=== PATIENT | male | born 1945 | race Hispanic/Latino ===

== ENCOUNTER 2017-03-04 13:18 | Observation (INO) | payer MEDICARE ==
[~2017-03-04] VITALS: Ht 170.2 cm; Wt 113.7 kg
[~2017-03-04 13:18] MED LIST: AMLO10TA2 PO; ARIP5TAB19 PO; FLUO40CA49 PO; LISI40TA4 PO; LORA10TA7 PO; MELO-108 PO; METO50TA18 PO; OMEP40CA37 PO; PREG75 PO; WARF-57 PO
[2017-03-04 14:00] LABS: BASOPHILS % (AUTO) 0.3 % (0.0-5.0); HEMATOCRIT 35.1 % (42-54); LYMPHOCYTES % (AUTO) 5.9 % (21.0-51.0); MEAN CORPUSCULAR HEMOGLOBIN 27.3 pg (27.0-33.0); MEAN CORPUSCULAR VOLUME 82.5 fL (79-99); MONOCYTES % (AUTO) 4.3 % (3.0-13.0); NEUTROPHILS % (AUTO) 89.5 % (40.0-77.0); PLATELET COUNT (AUTO) 264 K/uL (130-400); RED BLOOD CELL COUNT(AUTO) 4.26 MIL/uL (4.50-6.20); RED CELL DISTRIBUTION WIDTH 15.2 % (11.0-15.5); WHITE BLOOD COUNT (AUTO) 12.3 K/uL (4.8-10.8)
[2017-03-04] MEDS ORDERED: SODIUM CHLORIDE 0.9% 1000ML 1,000 ML IV ONE (14:01)
[2017-03-04] MEDS ORDERED: CEFTRIAXONE SODIUM 2 GM VIAL ONE (14:02)
[2017-03-04 14:19] LABS: CARBON DIOXIDE 24 mmol/L (21-32); CHLORIDE 99 mmol/L (101-111); CREATININE 0.9 mg/dL (0.5-1.5); GLOMERULAR FILTR. RATE CALC 88 mL/min (>60); GLUCOSE,RANDOM 175 mg/dL (70-105); POTASSIUM 3.1 mmol/L (3.5-5.1); SODIUM SERUM 135 mmol/L (136-145); UREA NITROGEN, BLOOD 16 mg/dL (7-18)
[2017-03-04 14:20] LABS: APPEARANCE,URINE Clear (CLEAR); BILIRUBIN,URINE Negative (NEGATIVE); COLOR,URINE Yellow (YELLOW); GLUCOSE, URINE (UA) 500 mg/dL (NEGATIVE); KETONES,URINE Negative (NEGATIVE); LEUKOCYTE ESTERASE ,URINE Negative (NEGATIVE); NITRATE,URINE Negative (NEGATIVE); OCCULT BLOOD,URINE Negative (NEGATIVE); PH,URINE 5.5 (5.0-8.0); PROTEIN,URINE Trace (NEGATIVE); UROBILINOGEN,URINE 0.2 mg/dL (0.2-1.0)
[2017-03-04 14:21] LABS: INR 2.7 (0.85-1.15); PARTIAL THROMBOPLASTIN TIME 41.5 SEC (26.3-35.5); PROTHROMBIN TIME 27.8 SEC (9.6-11.6)
[2017-03-04 14:34] LABS: ALANINE AMINOTRANSFERASE 29 U/L (12-78); ALBUMIN 3.2 g/dL (3.5-5.0); ASPARTATE AMINOTRANSFERASE 24 U/L (10-37); BILIRUBIN,TOTAL 0.8 mg/dL (0.2-1.0); CREATINE KINASE MB 0.7 ng/mL (0.5-3.6); CREATINE KINASE, TOTAL 247 U/L (21-232); MYOGLOBIN 109 ng/mL (10-92); TOTAL PROTEIN, SERUM 7.4 g/dL (6.0-8.3); TROPONIN I < 0.04 ng/mL (0.00-0.06)
[2017-03-04 14:44] LABS: BACTERIA,URINE Rare /HPF (None Seen); RBC,URINE 0-1 /HPF (0-1); SQUAMOUS EPITHELIAL CELL,UR Rare /LPF (0-2); WBC,URINE 0-1 /HPF (0-1)
[2017-03-04] MEDS ORDERED: POTASSIUM BICARB/CIT AC 25 MEQ TABLET.EFF ONE (15:50)
[2017-03-04] MEDS: DEXTROSE 5 %-0.225 % NACL 1,000 ML IV SCH (16:30)
[2017-03-04] MEDS ORDERED: ACETAMINOPHEN 325 MG TAB ONE (17:59)
[2017-03-04 20:00] VITALS: BP 129/74
[2017-03-04] MEDS ORDERED: ACETAMINOPHEN 325 MG TAB PO PRN (20:45)
[2017-03-04] MEDS ORDERED: DEXTROSE 5 %-0.225 % NACL 1,000 ML IV SCH (20:45)
[2017-03-04] MEDS ORDERED: DEXTROSE 50%-WATER 50 ML DISP.SYRIN IV PRN (21:45)
[2017-03-04] MEDS ORDERED: GLUCAGON 1MG KIT 1 MG ML IM PRN (21:45)
[2017-03-04] MEDS ORDERED: MORPHINE SULFATE 4 MG/1ML SYG IV PRN (21:45)
[2017-03-04] MEDS ORDERED: ONDANSETRON HCL 4 MG/2 ML VIAL IVP PRN (21:45)
[2017-03-05] VITALS (7 sets, daily range): BP systolic 111–135; BP diastolic 64–77
[2017-03-05 05:12] LABS: HEMATOCRIT 34.9 % (42-54); MEAN CORPUSCULAR HGB CONC 33.9 g/dL (32.0-36.0); MEAN CORPUSCULAR VOLUME 82.8 fL (79-99); NUCLEATED RED BLOOD CELLS 0.1 % (0.0-0.19); PLATELET COUNT (AUTO) 229 K/uL (130-400); RED BLOOD CELL COUNT(AUTO) 4.22 MIL/uL (4.50-6.20); RED CELL DISTRIBUTION WIDTH 15.3 % (11.0-15.5)
[2017-03-05 05:27] LABS: ALBUMIN 2.9 g/dL (3.5-5.0); BILIRUBIN,TOTAL 0.8 mg/dL (0.2-1.0); CREATININE 0.9 mg/dL (0.5-1.5); TOTAL PROTEIN, SERUM 6.9 g/dL (6.0-8.3)
[2017-03-05 05:42] LABS: POTASSIUM 2.8 mmol/L (3.5-5.1)
[2017-03-05] MEDS: DEXTROSE 5 %-0.225 % NACL 1,000 ML IV SCH ×2 (06:26→20:38)
[2017-03-05] MEDS ORDERED: POTASSIUM CHLORIDE 10% ELIXIR 20 MEQ/15 ML UDCUP ONE (08:30)
[2017-03-05] MEDS ORDERED: POTASSIUM CHLORIDE 20 MEQ ERTAB PO PRN (08:30)
[2017-03-05] MEDS ORDERED: WATER FOR INJECTION,STERILE 20 ML VIAL ONE (08:31)
[2017-03-05] MEDS: CEFTRIAXONE SODIUM 1 GM IVP SCH (09:25)
[2017-03-05] MEDS: POTASSIUM CHLORIDE 10% ELIXIR 20 MEQ/15 ML UDCUP PO PRN (11:13)
[2017-03-05] MEDS: POTASSIUM CHLORIDE 20MEQ/100ML 100 ML IV PRN ×2 (11:54→15:56)
[2017-03-05] MEDS: LIDOCAINE HCL-MPF 1% 2ML VIAL IVP PRN (11:55)
[2017-03-05] MEDS: INSULIN LISPRO 100 UNIT/ML 3ML SQ SCH ×2 (17:25→20:41)
[2017-03-05] MEDS: ENOXAPARIN SODIUM 30 MG/0.3 ML SQ SCH (17:25)
[2017-03-06 03:30] VITALS: BP 151/98
[2017-03-06 06:02] LABS: BASOPHILS % (AUTO) 0.4 % (0.0-5.0); EOSINOPHILS % (AUTO) 2.4 % (0.0-8.0); HEMATOCRIT 34.4 % (42-54); MEAN CORPUSCULAR VOLUME 81.9 fL (79-99); MONOCYTES % (AUTO) 10.2 % (3.0-13.0); PLATELET COUNT (AUTO) 224 K/uL (130-400); RED CELL DISTRIBUTION WIDTH 15.3 % (11.0-15.5); WHITE BLOOD COUNT (AUTO) 7.1 K/uL (4.8-10.8)
[2017-03-06 06:11] LABS: INR 1.37 (0.85-1.15); PROTHROMBIN TIME 14.3 SEC (9.6-11.6)
[2017-03-06 06:28] LABS: CREATININE 0.8 mg/dL (0.5-1.5); POTASSIUM 3.1 mmol/L (3.5-5.1)
[2017-03-06 08:00] VITALS: BP 141/87
[2017-03-06 11:00] VITALS: BP 126/70
[2017-03-06] MEDS ORDERED: WATER FOR INJECTION,STERILE 5 ML VIAL ONE (11:00)
[2017-03-06] MEDS: INSULIN LISPRO 100 UNIT/ML 3ML SQ SCH ×2 (11:05→20:23)
[2017-03-06] MEDS: CEFTRIAXONE SODIUM 1 GM IVP SCH (11:06)
[2017-03-06] MEDS: ENOXAPARIN SODIUM 30 MG/0.3 ML SQ SCH (11:07)
[2017-03-06] MEDS: DEXTROSE 5 %-0.225 % NACL 1,000 ML IV SCH ×2 (11:08→21:01)
[2017-03-06 16:00] VITALS: BP 134/64
[2017-03-06 19:35] VITALS: BP 137/77
[2017-03-06 23:20] VITALS: BP 136/79
[2017-03-07 03:30] VITALS: BP 128/69
[2017-03-07 05:43] LABS: BASOPHILS % (AUTO) 0.4 % (0.0-5.0); EOSINOPHILS % (AUTO) 2.9 % (0.0-8.0); LYMPHOCYTES % (AUTO) 25.9 % (21.0-51.0); MEAN CORPUSCULAR HEMOGLOBIN 27.7 pg (27.0-33.0); MEAN CORPUSCULAR HGB CONC 33.7 g/dL (32.0-36.0); MEAN CORPUSCULAR VOLUME 82.2 fL (79-99); MONOCYTES % (AUTO) 9.2 % (3.0-13.0); NEUTROPHILS % (AUTO) 61.6 % (40.0-77.0); PLATELET COUNT (AUTO) 209 K/uL (130-400); RED BLOOD CELL COUNT(AUTO) 4.26 MIL/uL (4.50-6.20); RED CELL DISTRIBUTION WIDTH 15.5 % (11.0-15.5); WHITE BLOOD COUNT (AUTO) 7.5 K/uL (4.8-10.8)
[2017-03-07 06:00] LABS: ALBUMIN 2.6 g/dL (3.5-5.0); BILIRUBIN,TOTAL 0.7 mg/dL (0.2-1.0); CREATININE 0.7 mg/dL (0.5-1.5); TOTAL PROTEIN, SERUM 6.4 g/dL (6.0-8.3)
[2017-03-07 07:54] VITALS: BP 131/74
[2017-03-07] MEDS ORDERED: LORATADINE 10 MG TABLET PO SCH (09:00)
[2017-03-07] MEDS ORDERED: PREGABALIN 75 MG CAPSULE PO SCH (09:00)
[2017-03-07] MEDS ORDERED: ARIPIPRAZOLE 5 MG TABLET PO SCH (09:00)
[2017-03-07] MEDS ORDERED: METOPROLOL TARTRATE 50 MG TAB PO SCH (09:00)
[2017-03-07] MEDS ORDERED: LISINOPRIL 40 MG TABLET PO SCH (09:00)
[2017-03-07] MEDS ORDERED: AMLODIPINE BESYLATE 5 MG TAB PO SCH (09:00)
[2017-03-07] MEDS ORDERED: FLUOXETINE HCL 20 MG CAPSULE PO SCH (09:00)
[2017-03-07] MEDS ORDERED: PANTOPRAZOLE SODIUM 40 MG TABLET.DR PO SCH (09:00)
[2017-03-07] MEDS ORDERED: SODIUM CHLORIDE 0.9% 10 ML VIAL ONE (09:27)
[2017-03-07] MEDS: CEFTRIAXONE SODIUM 1 GM IVP SCH (09:41)
[2017-03-07] MEDS: ENOXAPARIN SODIUM 30 MG/0.3 ML SQ SCH (09:43)
[2017-03-07] MEDS: POTASSIUM CHLORIDE 10% ELIXIR 20 MEQ/15 ML UDCUP PO PRN ×2 (09:44→12:13)
[2017-03-07] MEDS: INSULIN LISPRO 100 UNIT/ML 3ML SQ SCH (09:57)
[2017-03-07] MEDS: LIDOCAINE HCL-MPF 1% 2ML VIAL IVP PRN (10:04)
[2017-03-07] MEDS: POTASSIUM CHLORIDE 20MEQ/100ML 100 ML IV PRN (10:04)
[2017-03-07 11:46] VITALS: BP 128/79
[2017-03-07 15:48] VITALS: BP_SYST 119; BP_SYST 123; BP_DIAS 71; BP_DIAS 73
[2017-03-07] MEDS ORDERED: WARFARIN SODIUM 5 MG TAB PO SCH (17:00)
== END 2017-03-07 16:45 | disposition home or self-care (01) ==
LOC: EDH 13:18 → EDHIP 15:10 → 3AH 20:13
PROVIDERS: ADMIT Internal Medicine; ATTEND Internal Medicine
DX: A41.9 Sepsis, unspecified organism (principal); R50.9 Fever, unspecified; D72.829 Elevated white blood cell count, unspecified; E86.0 Dehydration; J96.10 Chronic respiratory failure, unspecified whether with hypoxia or hypercapnia; E11.9 Type 2 diabetes mellitus without complications; E78.5 Hyperlipidemia, unspecified; I10 Essential (primary) hypertension; I25.10 Atherosclerotic heart disease of native coronary artery without angina pectoris; Z79.4 Long term (current) use of insulin; Z79.01 Long term (current) use of anticoagulants; Z85.72 Personal history of non-Hodgkin lymphomas; Z86.73 Personal history of transient ischemic attack (TIA), and cerebral infarction without residual deficits; Z99.81 Dependence on supplemental oxygen
CPT/HCPCS: 36415 ×4; 70450; 71010; 72125; 80048; 80053 ×3; 81001; 82550; 82553; 82948 ×7; 83605 ×3; 83874; 84132; 84484; 85025 ×3; 85027; 85610 ×2; 85730; 87040; 87088; 87804 ×2; 93005; 96361 ×3; 96372 ×3; 96374; 96375; 96376 ×2; 99285; G0378 ×74; J0696 ×4; J1650 ×2; J3480 ×3; J3490 ×2; J7030; J7042 ×4

== ENCOUNTER 2017-03-16 17:13 | Inpatient (IN) | payer MEDICARE ==
[~2017-03-16] VITALS: Ht 170.2 cm; Wt 103.9 kg
[2017-03-16 17:51] LABS: BASOPHILS % (AUTO) 0.4 % (0.0-5.0); EOSINOPHILS % (AUTO) 0.4 % (0.0-8.0); HEMATOCRIT 30.9 % (42-54); LYMPHOCYTES % (AUTO) 16.3 % (21.0-51.0); MEAN CORPUSCULAR HEMOGLOBIN 26.3 pg (27.0-33.0); MEAN CORPUSCULAR HGB CONC 32.4 g/dL (32.0-36.0); MEAN CORPUSCULAR VOLUME 81.3 fL (79-99); MONOCYTES % (AUTO) 6.4 % (3.0-13.0); NEUTROPHILS % (AUTO) 76.5 % (40.0-77.0); PLATELET COUNT (AUTO) 326 K/uL (130-400); RED CELL DISTRIBUTION WIDTH 15.7 % (11.0-15.5); WHITE BLOOD COUNT (AUTO) 13.4 K/uL (4.8-10.8)
[2017-03-16 17:57] LABS: APPEARANCE,URINE Clear (CLEAR); BILIRUBIN,URINE Negative (NEGATIVE); COLOR,URINE Dark Yellow (YELLOW); GLUCOSE, URINE (UA) 250 mg/dL (NEGATIVE); KETONES,URINE Trace mg/dL (NEGATIVE); LEUKOCYTE ESTERASE ,URINE Small (NEGATIVE); NITRATE,URINE Negative (NEGATIVE); OCCULT BLOOD,URINE Negative (NEGATIVE); PROTEIN,URINE POS 1+ (NEGATIVE)
[2017-03-16 18:04] LABS: CREATININE 1.1 mg/dL (0.5-1.5); INR 3.29 (0.85-1.15); PARTIAL THROMBOPLASTIN TIME 45.3 SEC (26.3-35.5); POTASSIUM 3.4 mmol/L (3.5-5.1); PROTHROMBIN TIME 33.7 SEC (9.6-11.6)
[2017-03-16 18:06] LABS: BACTERIA,URINE Few /HPF (None Seen); RBC,URINE None Seen /HPF (0-1)
[2017-03-16 18:17] LABS: BILIRUBIN,TOTAL 1.3 mg/dL (0.2-1.0); CREATINE KINASE MB 0.7 ng/mL (0.5-3.6); TOTAL PROTEIN, SERUM 7.1 g/dL (6.0-8.3)
[2017-03-16 18:20] LABS: B-TYPE NATRIURETIC PEPTIDE 346 pg/mL (0-100)
[2017-03-16] MEDS ORDERED: NITROGLYCERIN 1GM/1 INCH PACKET TD ONE (18:21)
[2017-03-16] MEDS ORDERED: FUROSEMIDE 10 MG/ML 2ML VIAL ONE (18:30)
[2017-03-16] MEDS ORDERED: CEFTRIAXONE SODIUM 1 GM ONE (18:30)
[2017-03-16] MEDS ORDERED: AZITHROMYCIN 500MG+NS 250ML 250 ML IV ONE (18:30)
[2017-03-16] MEDS ORDERED: SODIUM CHLORIDE 0.9% 10 ML VIAL IVP PRN (19:45)
[2017-03-16] MEDS ORDERED: ACETAMINOPHEN 325 MG TAB ONE (21:00)
[2017-03-16 23:50] VITALS: BP 125/72
[2017-03-17] MEDS ORDERED: POTASSIUM CHLORIDE 10 MEQ/TAB.SA PO ONE ×4 (00:09→02:12)
[2017-03-17] MEDS ORDERED: POTASSIUM CHLORIDE 10% ELIXIR 20 MEQ/15 ML UDCUP PO PRN (01:00)
[2017-03-17] MEDS ORDERED: LACTULOSE 20 GM/30 ML UDCUP PO PRN (01:00)
[2017-03-17] MEDS ORDERED: ACETAMINOPHEN 325 MG TAB PO PRN (01:00)
[2017-03-17] MEDS ORDERED: NITROGLYCERIN 0.4 MG SL TAB SL PRN (01:00)
[2017-03-17] MEDS ORDERED: ONDANSETRON HCL 4 MG/2 ML VIAL IVP PRN (01:00)
[2017-03-17] MEDS ORDERED: ZOLPIDEM TARTRATE 5 MG TAB PO PRN (01:00)
[2017-03-17] MEDS ORDERED: GLUCAGON 1MG KIT 1 MG ML IM PRN (01:00)
[2017-03-17] MEDS ORDERED: CLONIDINE HCL 0.1 MG TABLET PO PRN (01:00)
[2017-03-17] MEDS ORDERED: LIDOCAINE HCL-MPF 1% 2ML VIAL IJ PRN (01:00)
[2017-03-17] MEDS ORDERED: DIPHENHYDRAMINE HCL 25 MG CAPSULE PO PRN (01:00)
[2017-03-17] MEDS ORDERED: DiphenhydrAMINE HCL 50 MG/ML VIAL IVP PRN (01:00)
[2017-03-17] MEDS ORDERED: POTASSIUM CHLORIDE 20MEQ/100ML 100 ML IV PRN (01:00)
[2017-03-17] MEDS ORDERED: DEXTROSE 50%-WATER 50 ML DISP.SYRIN IV PRN (01:00)
[2017-03-17] MEDS ORDERED: MAG HYDROX/AL HYDROX/SIMETH ES 30 ML SUSP UDCUP PO PRN (01:00)
[2017-03-17] MEDS ORDERED: GUAIFENESIN SUGAR-FREE 100 MG/5 ML UDCUP PO PRN (01:00)
[2017-03-17] MEDS: IPRATROPIUM/ALBUTEROL SULFATE 3 ML SOLUTION IH SCH ×6 (01:42→22:08)
[2017-03-17 02:58] LABS: CREATINE KINASE MB 1.3 ng/mL (0.5-3.6); TROPONIN I 0.19 ng/mL (0.00-0.06)
[2017-03-17 03:47] VITALS: BP 104/54
[2017-03-17] MEDS: INSULIN R PO SS1 SQ SCH ×4 (05:49→22:17)
[2017-03-17] MEDS ORDERED: ARIP10TA16 PO (06:03)
[2017-03-17 06:10] LABS: HEMATOCRIT 28.5 % (42-54); MEAN CORPUSCULAR HEMOGLOBIN 27.2 pg (27.0-33.0); MEAN CORPUSCULAR HGB CONC 33.4 g/dL (32.0-36.0); MEAN CORPUSCULAR VOLUME 81.6 fL (79-99); NUCLEATED RED BLOOD CELLS 0.1 % (0.0-0.19); PLATELET COUNT (AUTO) 280 K/uL (130-400); RED BLOOD CELL COUNT(AUTO) 3.49 MIL/uL (4.50-6.20)
[2017-03-17] MEDS: FUROSEMIDE 10 MG/ML 4ML VIAL IVP SCH ×2 (06:28→16:17)
[2017-03-17 06:38] LABS: CREATINE KINASE MB 1.6 ng/mL (0.5-3.6); POTASSIUM 3.3 mmol/L (3.5-5.1); TROPONIN I 0.17 ng/mL (0.00-0.06)
[2017-03-17 07:30] VITALS: BP 108/69
[2017-03-17 08:31] LABS: EOSINOPHILS % (MANUAL) 1 % (1-6); LYMPHOCYTES % (MANUAL) 13 % (22-44); MAN.DIFF COMMENT-IMPRESSION MANUAL DIFFERENTIAL; MONOCYTES % (MANUAL) 7 % (2-9); PLATELET MORPHOLOGY COMMENT ADEQUATE; SEGMENTED NEUTROPHILS % 79 % (40-70)
[2017-03-17] MEDS: AZITHROMYCIN 500MG+NS 250ML 250 ML IV SCH (08:41)
[2017-03-17] MEDS: CEFTRIAXONE SODIUM 1 GM IVP SCH (08:41)
[2017-03-17] MEDS: ENOXAPARIN SODIUM 100 MG/1 ML SQ SCH ×2 (08:42→22:19)
[2017-03-17] MEDS: CARVEDILOL 3.125 MG TABLET PO SCH ×2 (10:43→22:20)
[2017-03-17] MEDS: AMLODIPINE BESYLATE 5 MG TAB PO SCH (10:43)
[2017-03-17 11:37] VITALS: BP 126/69
[2017-03-17 16:16] VITALS: BP 143/80
[2017-03-17] MEDS: WARFARIN SODIUM 5 MG TAB PO SCH (16:16)
[2017-03-17 19:47] VITALS: BP 122/93
[2017-03-17] MEDS: METOPROLOL TARTRATE 50 MG TAB PO SCH (22:20)
[2017-03-17] MEDS: ACETAMINOPHEN 325 MG TAB PO PRN (22:21)
[2017-03-17 23:42] VITALS: BP 122/54
[2017-03-18] MEDS: IPRATROPIUM/ALBUTEROL SULFATE 3 ML SOLUTION IH SCH ×6 (02:15→22:12)
[2017-03-18] MEDS: ACETAMINOPHEN 325 MG TAB PO PRN (03:49)
[2017-03-18 04:15] VITALS: BP 119/73
[2017-03-18 04:15] LABS: HEMATOCRIT 31.7 % (42-54); MEAN CORPUSCULAR HGB CONC 33.3 g/dL (32.0-36.0); PLATELET COUNT (AUTO) 354 K/uL (130-400); RED BLOOD CELL COUNT(AUTO) 3.91 MIL/uL (4.50-6.20); RED CELL DISTRIBUTION WIDTH 15.8 % (11.0-15.5); WHITE BLOOD COUNT (AUTO) 10.7 K/uL (4.8-10.8)
[2017-03-18] MEDS ORDERED: PANTOPRAZOLE SODIUM 40 MG TABLET.DR PO ONE (04:53)
[2017-03-18 04:58] LABS: INR 2.51 (0.85-1.15); PARTIAL THROMBOPLASTIN TIME 56.7 SEC (26.3-35.5); PROTHROMBIN TIME 25.9 SEC (9.6-11.6)
[2017-03-18 05:06] LABS: CREATININE 1.1 mg/dL (0.5-1.5); POTASSIUM 3.4 mmol/L (3.5-5.1)
[2017-03-18] MEDS: INSULIN R PO SS1 SQ SCH ×4 (06:18→20:31)
[2017-03-18] MEDS: FUROSEMIDE 10 MG/ML 4ML VIAL IVP SCH ×2 (06:20→16:29)
[2017-03-18] MEDS: PANTOPRAZOLE SODIUM 40 MG TABLET.DR PO SCH (06:25)
[2017-03-18 07:54] VITALS: BP 118/88
[2017-03-18] MEDS: AZITHROMYCIN 500MG+NS 250ML 250 ML IV SCH (08:10)
[2017-03-18] MEDS: METOPROLOL TARTRATE 50 MG TAB PO SCH ×2 (08:10→20:13)
[2017-03-18] MEDS: MELOXICAM 7.5 MG TABLET PO SCH (08:10)
[2017-03-18] MEDS: CARVEDILOL 3.125 MG TABLET PO SCH ×2 (08:10→20:14)
[2017-03-18] MEDS: FLUOXETINE HCL 20 MG CAPSULE PO SCH (08:10)
[2017-03-18] MEDS: CEFTRIAXONE SODIUM 1 GM IVP SCH (08:10)
[2017-03-18] MEDS: PREGABALIN 75 MG CAPSULE PO SCH (08:11)
[2017-03-18] MEDS: LISINOPRIL 40 MG TABLET PO SCH (08:11)
[2017-03-18] MEDS: AMLODIPINE BESYLATE 5 MG TAB PO SCH (08:11)
[2017-03-18] MEDS: ARIPIPRAZOLE 5 MG TABLET PO SCH (08:11)
[2017-03-18] MEDS: ENOXAPARIN SODIUM 100 MG/1 ML SQ SCH (08:11)
[2017-03-18 11:16] VITALS: BP 88/51
[2017-03-18] MEDS: WARFARIN SODIUM 5 MG TAB PO SCH (16:30)
[2017-03-18] MEDS: POTASSIUM CHLORIDE 20 MEQ ERTAB PO PRN ×2 (16:30→20:33)
[2017-03-18 16:41] VITALS: BP 119/70
[2017-03-18 19:57] VITALS: BP 118/64
[2017-03-18 23:09] VITALS: BP 122/71
[2017-03-19] MEDS: IPRATROPIUM/ALBUTEROL SULFATE 3 ML SOLUTION IH SCH ×6 (02:16→22:34)
[2017-03-19 04:04] VITALS: BP 130/70
[2017-03-19 05:24] LABS: HEMATOCRIT 29.8 % (42-54); MEAN CORPUSCULAR HEMOGLOBIN 27.2 pg (27.0-33.0); MEAN CORPUSCULAR HGB CONC 33.4 g/dL (32.0-36.0); MEAN CORPUSCULAR VOLUME 81.2 fL (79-99); PLATELET COUNT (AUTO) 314 K/uL (130-400); RED BLOOD CELL COUNT(AUTO) 3.67 MIL/uL (4.50-6.20); RED CELL DISTRIBUTION WIDTH 15.9 % (11.0-15.5); WHITE BLOOD COUNT (AUTO) 10.7 K/uL (4.8-10.8)
[2017-03-19 05:38] LABS: PROTHROMBIN TIME 20.7 SEC (9.6-11.6)
[2017-03-19 05:46] LABS: CREATININE 1.1 mg/dL (0.5-1.5); POTASSIUM 3.7 mmol/L (3.5-5.1)
[2017-03-19] MEDS: PANTOPRAZOLE SODIUM 40 MG TABLET.DR PO SCH (05:51)
[2017-03-19] MEDS: POTASSIUM CHLORIDE 20 MEQ ERTAB PO PRN ×2 (05:51→20:27)
[2017-03-19] MEDS: FUROSEMIDE 10 MG/ML 4ML VIAL IVP SCH ×2 (05:52→19:04)
[2017-03-19] MEDS: INSULIN R PO SS1 SQ SCH ×4 (06:18→20:28)
[2017-03-19 07:00] VITALS: BP 113/67
[2017-03-19] MEDS: CEFTRIAXONE SODIUM 1 GM IVP SCH (07:56)
[2017-03-19] MEDS: ARIPIPRAZOLE 5 MG TABLET PO SCH (07:57)
[2017-03-19] MEDS: METOPROLOL TARTRATE 50 MG TAB PO SCH ×2 (07:57→20:26)
[2017-03-19] MEDS: FLUOXETINE HCL 20 MG CAPSULE PO SCH (07:57)
[2017-03-19] MEDS: AMLODIPINE BESYLATE 5 MG TAB PO SCH (07:57)
[2017-03-19] MEDS: LISINOPRIL 40 MG TABLET PO SCH (07:57)
[2017-03-19] MEDS: MELOXICAM 7.5 MG TABLET PO SCH (07:57)
[2017-03-19] MEDS: AZITHROMYCIN 500MG+NS 250ML 250 ML IV SCH (07:57)
[2017-03-19] MEDS: PREGABALIN 75 MG CAPSULE PO SCH (07:57)
[2017-03-19] MEDS: CARVEDILOL 3.125 MG TABLET PO SCH ×2 (07:57→20:26)
[2017-03-19 11:43] VITALS: BP 83/53
[2017-03-19 16:00] VITALS: BP 123/66
[2017-03-19] MEDS: WARFARIN SODIUM 5 MG TAB PO SCH (16:46)
[2017-03-19 19:46] VITALS: BP 126/56
[2017-03-19 23:34] VITALS: BP 129/84
[2017-03-20] MEDS: IPRATROPIUM/ALBUTEROL SULFATE 3 ML SOLUTION IH SCH ×6 (02:06→21:58)
[2017-03-20 04:00] VITALS: BP 145/77
[2017-03-20 05:39] LABS: HEMATOCRIT 33.3 % (42-54); MEAN CORPUSCULAR HEMOGLOBIN 25.7 pg (27.0-33.0); MEAN CORPUSCULAR HGB CONC 31.8 g/dL (32.0-36.0); MEAN CORPUSCULAR VOLUME 80.9 fL (79-99); PLATELET COUNT (AUTO) 355 K/uL (130-400); RED BLOOD CELL COUNT(AUTO) 4.12 MIL/uL (4.50-6.20); RED CELL DISTRIBUTION WIDTH 16.1 % (11.0-15.5); WHITE BLOOD COUNT (AUTO) 13.6 K/uL (4.8-10.8)
[2017-03-20 05:49] LABS: INR 2.45 (0.85-1.15); PARTIAL THROMBOPLASTIN TIME 42.3 SEC (26.3-35.5); PROTHROMBIN TIME 25.3 SEC (9.6-11.6)
[2017-03-20 05:51] LABS: ALBUMIN 3.1 g/dL (3.5-5.0); BILIRUBIN,TOTAL 0.8 mg/dL (0.2-1.0); CREATININE 1.2 mg/dL (0.5-1.5); POTASSIUM 3.9 mmol/L (3.5-5.1); TOTAL PROTEIN, SERUM 7.7 g/dL (6.0-8.3)
[2017-03-20] MEDS: GUAIFENESIN-DM 200/20 MG 10 ML PO PRN ×2 (06:15→20:49)
[2017-03-20] MEDS: PANTOPRAZOLE SODIUM 40 MG TABLET.DR PO SCH (06:15)
[2017-03-20] MEDS: ACETAMINOPHEN 325 MG TAB PO PRN ×2 (06:16→20:50)
[2017-03-20] MEDS: INSULIN R PO SS1 SQ SCH ×4 (06:16→20:45)
[2017-03-20 08:18] VITALS: BP 138/78
[2017-03-20] MEDS ORDERED: WATER FOR INJECTION,STERILE 5 ML VIAL ONE (09:08)
[2017-03-20] MEDS: FLUOXETINE HCL 20 MG CAPSULE PO SCH (09:16)
[2017-03-20] MEDS: ARIPIPRAZOLE 5 MG TABLET PO SCH (09:16)
[2017-03-20] MEDS: METOPROLOL TARTRATE 50 MG TAB PO SCH ×2 (09:16→20:50)
[2017-03-20] MEDS: AMLODIPINE BESYLATE 5 MG TAB PO SCH (09:16)
[2017-03-20] MEDS: CEFTRIAXONE SODIUM 1 GM IVP SCH (09:17)
[2017-03-20] MEDS: CARVEDILOL 3.125 MG TABLET PO SCH ×2 (09:17→20:50)
[2017-03-20] MEDS: PREGABALIN 75 MG CAPSULE PO SCH (09:17)
[2017-03-20] MEDS: MELOXICAM 7.5 MG TABLET PO SCH (09:17)
[2017-03-20] MEDS: LISINOPRIL 40 MG TABLET PO SCH (09:17)
[2017-03-20] MEDS: AZITHROMYCIN 500MG+NS 250ML 250 ML IV SCH (09:17)
[2017-03-20 11:30] VITALS: BP 97/52
[2017-03-20 16:32] VITALS: BP 109/58
[2017-03-20] MEDS ORDERED: WARFARIN SODIUM 2.5 MG TAB PO SCH (17:00)
[2017-03-20] MEDS: WARFARIN SODIUM 5 MG TAB PO SCH (17:00)
[2017-03-20 20:00] VITALS: BP 119/59
[2017-03-20 23:56] VITALS: BP 113/57
[2017-03-21] MEDS: GUAIFENESIN-DM 200/20 MG 10 ML PO PRN (02:50)
[2017-03-21] MEDS: IPRATROPIUM/ALBUTEROL SULFATE 3 ML SOLUTION IH SCH ×3 (03:05→09:34)
[2017-03-21 04:00] VITALS: BP 102/58
[2017-03-21] MEDS: INSULIN R PO SS1 SQ SCH (05:54)
[2017-03-21 05:58] LABS: HEMATOCRIT 28.3 % (42-54); MEAN CORPUSCULAR HEMOGLOBIN 27.7 pg (27.0-33.0); MEAN CORPUSCULAR HGB CONC 34.1 g/dL (32.0-36.0); MEAN CORPUSCULAR VOLUME 81.2 fL (79-99); PLATELET COUNT (AUTO) 307 K/uL (130-400); RED BLOOD CELL COUNT(AUTO) 3.49 MIL/uL (4.50-6.20); RED CELL DISTRIBUTION WIDTH 15.6 % (11.0-15.5)
[2017-03-21 06:06] LABS: EOSINOPHILS % (MANUAL) 3 % (1-6); LYMPHOCYTES % (MANUAL) 17 % (22-44); MONOCYTES % (MANUAL) 5 % (2-9); SEGMENTED NEUTROPHILS % 75 % (40-70)
[2017-03-21 06:07] LABS: CREATININE 1.1 mg/dL (0.5-1.5); MAN.DIFF COMMENT-IMPRESSION MANUAL DIFFERENTIAL; PLATELET MORPHOLOGY COMMENT ADEQUATE; POTASSIUM 3.7 mmol/L (3.5-5.1)
[2017-03-21] MEDS: PANTOPRAZOLE SODIUM 40 MG TABLET.DR PO SCH ×2 (06:15→08:37)
[2017-03-21 07:04] VITALS: BP 95/63
[2017-03-21] MEDS ORDERED: WATER FOR INJECTION,STERILE 5 ML VIAL ONE (08:28)
[2017-03-21 08:33] VITALS: BP 95/63
[2017-03-21] MEDS: CARVEDILOL 3.125 MG TABLET PO SCH (08:33)
[2017-03-21] MEDS: METOPROLOL TARTRATE 50 MG TAB PO SCH (08:33)
[2017-03-21] MEDS: AMLODIPINE BESYLATE 5 MG TAB PO SCH (08:33)
[2017-03-21] MEDS: LISINOPRIL 40 MG TABLET PO SCH (08:33)
[2017-03-21] MEDS: FLUOXETINE HCL 20 MG CAPSULE PO SCH (08:36)
[2017-03-21] MEDS: CEFTRIAXONE SODIUM 1 GM IVP SCH (08:36)
[2017-03-21] MEDS: AZITHROMYCIN 500MG+NS 250ML 250 ML IV SCH (08:36)
[2017-03-21] MEDS: MELOXICAM 7.5 MG TABLET PO SCH (08:36)
[2017-03-21] MEDS: ARIPIPRAZOLE 5 MG TABLET PO SCH (08:55)
[2017-03-21] MEDS: PREGABALIN 75 MG CAPSULE PO SCH (08:55)
== END 2017-03-21 10:45 | DRG 871 ==
LOC: EDH 17:13 → EDHIP 19:11 → 2DH 21:43 → 4CH 03-20 03:45
PROVIDERS: ADMIT Family Medicine; ATTEND Family Medicine
DX: A41.9 Sepsis, unspecified organism (principal); J18.9 Pneumonia, unspecified organism; J96.90 Respiratory failure, unspecified, unspecified whether with hypoxia or hypercapnia; I42.9 Cardiomyopathy, unspecified; E11.9 Type 2 diabetes mellitus without complications; E66.9 Obesity, unspecified; E78.5 Hyperlipidemia, unspecified; I10 Essential (primary) hypertension; I25.10 Atherosclerotic heart disease of native coronary artery without angina pectoris; I45.10 Unspecified right bundle-branch block; Z72.0 Tobacco use; Z74.01 Bed confinement status; Z85.72 Personal history of non-Hodgkin lymphomas; Z86.718 Personal history of other venous thrombosis and embolism; Z91.19 Patient's noncompliance with other medical treatment and regimen; Z68.35 Body mass index [BMI] 35.0-35.9, adult
CPT/HCPCS: 36415; 71045; 71046; 80048; 80053; 81001; 82550; 82553; 82948; 83605; 83874; 83880; 84484; 85025; 85027; 85610; 85730; 87040; 87804; 93005; 94640; 94664; 99291; J0456; J0696; J1650; J1815; J1940

== ENCOUNTER 2017-04-11 18:39 | Inpatient (IN) | payer MEDICARE ==
[~2017-04-11] VITALS: Ht 175.3 cm; Wt 107.7 kg
[~2017-04-11 18:39] MED LIST changes: +ARIP10TA16 PO; -ARIP5TAB19 PO; +ETOMIDATE 2 MG/ML 10 ML VIAL IVP ONE; -LORA10TA7 PO
[2017-04-11 19:07] LABS: ABG BASE EXCESS 0.6 mmol/L (-2.0-3.0); ABG HCO3 23.5 mmol/L (21.0-28.0); ABG OXYGEN SATURATION 99.8 % (95.0-99.0); ABG PCO2 33 mmHg (35-48)
[2017-04-11 19:10] LABS: BASOPHILS % (AUTO) 0.5 % (0.0-5.0); EOSINOPHILS % (AUTO) 1.3 % (0.0-8.0); LYMPHOCYTES % (AUTO) 12.5 % (21.0-51.0); MEAN CORPUSCULAR HEMOGLOBIN 25.6 pg (27.0-33.0); MEAN CORPUSCULAR HGB CONC 32.5 g/dL (32.0-36.0); MEAN CORPUSCULAR VOLUME 78.7 fL (79-99); MONOCYTES % (AUTO) 4.9 % (3.0-13.0); NEUTROPHILS % (AUTO) 80.8 % (40.0-77.0); PLATELET COUNT (AUTO) 264 K/uL (130-400); RED BLOOD CELL COUNT(AUTO) 3.82 MIL/uL (4.50-6.20); RED CELL DISTRIBUTION WIDTH 16.6 % (11.0-15.5); WHITE BLOOD COUNT (AUTO) 13.3 K/uL (4.8-10.8)
[2017-04-11 19:14] LABS: CARBON DIOXIDE 23 mmol/L (21-32); CHLORIDE 100 mmol/L (101-111); CREATININE 1.1 mg/dL (0.5-1.5); GLOMERULAR FILTR. RATE CALC 70 mL/min (>60); GLUCOSE,RANDOM 214 mg/dL (70-105); POTASSIUM 3.7 mmol/L (3.5-5.1); SODIUM SERUM 133 mmol/L (136-145); UREA NITROGEN, BLOOD 20 mg/dL (7-18)
[2017-04-11] MEDS ORDERED: SODIUM CHLORIDE 0.9% 1000ML 1,000 ML IV ONE (19:28)
[2017-04-11 19:32] LABS: INR 2.77 (0.85-1.15); PARTIAL THROMBOPLASTIN TIME 37.2 SEC (26.3-35.5); PROTHROMBIN TIME 28.5 SEC (9.6-11.6)
[2017-04-11 19:34] LABS: ALANINE AMINOTRANSFERASE 20 U/L (12-78); ALBUMIN 3.2 g/dL (3.5-5.0); ASPARTATE AMINOTRANSFERASE 17 U/L (10-37); BILIRUBIN,TOTAL 1.1 mg/dL (0.2-1.0); CREATINE KINASE MB < 0.5 ng/mL (0.5-3.6); CREATINE KINASE, TOTAL 59 U/L (21-232); MYOGLOBIN 23 ng/mL (10-92); TOTAL PROTEIN, SERUM 7.2 g/dL (6.0-8.3); TROPONIN I < 0.04 ng/mL (0.00-0.06)
[2017-04-11] MEDS ORDERED: LEVOFLOXACIN 500 MG/D5W 100 ML 100 ML ONE (20:06)
[2017-04-11 20:25] LABS: APPEARANCE,URINE Cloudy (CLEAR); BILIRUBIN,URINE Negative (NEGATIVE); COLOR,URINE Dark Yellow (YELLOW); GLUCOSE, URINE (UA) 250 mg/dL (NEGATIVE); KETONES,URINE Trace mg/dL (NEGATIVE); LEUKOCYTE ESTERASE ,URINE Trace (NEGATIVE); NITRATE,URINE Negative (NEGATIVE); OCCULT BLOOD,URINE Nonhemolyzed Trace (NEGATIVE); PH,URINE 5.5 (5.0-8.0); PROTEIN,URINE 300 (NEGATIVE)
[2017-04-11 20:46] LABS: SQUAMOUS EPITHELIAL CELL,UR 30-50 /LPF (0-2)
[2017-04-11 20:47] LABS: BACTERIA,URINE Rare /HPF (None Seen); RBC,URINE 0-1 /HPF (0-1)
[2017-04-11] MEDS ORDERED: VANCOMYCIN 1GM+NS 250ML 250 ML IV ONE (21:24)
[2017-04-11] MEDS ORDERED: LORAZEPAM 2 MG/ML 1 ML VIAL ONE (23:52)
[2017-04-11] MEDS ORDERED: PROPOFOL 1000 MG/100 ML 100 ML IV ONE (23:58)
[2017-04-11] MEDS ORDERED: FENTANYL CITRATE PF 50 MCG/1 ML 2ML VIAL ONE (23:58)
[2017-04-12] VITALS (22 sets, daily range): BP systolic 97–153; BP diastolic 50–104
[2017-04-12] MEDS ORDERED: IOPAMIDOL-370 75 ML VIAL IV ONE (00:02)
[2017-04-12] MEDS ORDERED: SODIUM CHLORIDE 0.9% 1000ML 1,000 ML IV ONE ×3 (00:08→08:23)
[2017-04-12] MEDS ORDERED: OSELTAMIVIR PHOSPHATE 75 MG CAP ONE (01:18)
[2017-04-12 01:56] LABS: ABG BASE EXCESS -3.8 mmol/L (-2.0-3.0); ABG HCO3 20.5 mmol/L (21.0-28.0); ABG OXYGEN SATURATION 89.7 % (95.0-99.0); ABG PCO2 35 mmHg (35-48)
[2017-04-12] MEDS ORDERED: SODIUM CHLORIDE 0.9% 1000ML 2,000 ML IV SCH (02:00)
[2017-04-12] MEDS ORDERED: PHARMACY COMMUNICATION MISC SCH ×2 (02:00→19:00)
[2017-04-12] MEDS: MEROPENEM 1 GM VIAL IVP SCH ×3 (02:00→17:47)
[2017-04-12] MEDS ORDERED: NOREPINEPHRINE 4MG/NS 250ML 250 ML IV SCH (02:00)
[2017-04-12] MEDS ORDERED: VANCOMYCIN PROTOCOL PER PHARMACY IV SCH ×2 (02:00→11:15)
[2017-04-12] MEDS ORDERED: NOREPINEPHRINE BITARTRATE 1 MG/1 ML ML IV ONE (03:06)
[2017-04-12] MEDS ORDERED: SODIUM CHLORIDE 0.9% 250 ML IV ONE (03:07)
[2017-04-12] MEDS ORDERED: PROPOFOL 1000 MG/100 ML 100 ML IV ONE ×2 (03:39→09:18)
[2017-04-12 05:25] LABS: ABG BASE EXCESS -3.2 mmol/L (-2.0-3.0); ABG HCO3 20.4 mmol/L (21.0-28.0); ABG OXYGEN SATURATION 92.3 % (95.0-99.0); ABG PCO2 33 mmHg (35-48)
[2017-04-12 05:57] LABS: BASOPHILS % (AUTO) 0.1 % (0.0-5.0); EOSINOPHILS % (AUTO) 0.1 % (0.0-8.0); HEMATOCRIT 26.7 % (42-54); LYMPHOCYTES % (AUTO) 7.2 % (21.0-51.0); MEAN CORPUSCULAR HEMOGLOBIN 26.4 pg (27.0-33.0); MEAN CORPUSCULAR HGB CONC 33.2 g/dL (32.0-36.0); MEAN CORPUSCULAR VOLUME 79.6 fL (79-99); MONOCYTES % (AUTO) 4.9 % (3.0-13.0); NEUTROPHILS % (AUTO) 87.7 % (40.0-77.0); PLATELET COUNT (AUTO) 234 K/uL (130-400); RED BLOOD CELL COUNT(AUTO) 3.36 MIL/uL (4.50-6.20); RED CELL DISTRIBUTION WIDTH 16.6 % (11.0-15.5); WHITE BLOOD COUNT (AUTO) 15.8 K/uL (4.8-10.8)
[2017-04-12 06:03] LABS: POTASSIUM 3.7 mmol/L (3.5-5.1)
[2017-04-12 06:09] LABS: ALBUMIN 2.6 g/dL (3.5-5.0); BILIRUBIN,TOTAL 1.5 mg/dL (0.2-1.0); TOTAL PROTEIN, SERUM 6.2 g/dL (6.0-8.3)
[2017-04-12] MEDS ORDERED: MEROPENEM 1 GM VIAL ONE (07:18)
[2017-04-12] MEDS ORDERED: DEXTROSE 50%-WATER 50 ML DISP.SYRIN IV PRN (07:30)
[2017-04-12] MEDS ORDERED: GLUCAGON 1MG KIT 1 MG ML IM PRN (07:30)
[2017-04-12] MEDS ORDERED: INSULIN R PO SS1 SQ SCH (07:30)
[2017-04-12] MEDS ORDERED: SODIUM CHLORIDE 0.9% 10 ML VIAL IVP PRN (07:30)
[2017-04-12] MEDS ORDERED: DOXYCYCLINE 100MG+NS 250ML 250 ML IV ONE (08:22)
[2017-04-12] MEDS ORDERED: HEPARIN SODIUM 5000UNIT/ML 1ML VIAL ONE (08:23)
[2017-04-12] MEDS ORDERED: OSELTAMIVIR PHOSPHATE 75 MG CAP PO SCH (09:00)
[2017-04-12 09:18] LABS: ABG BASE EXCESS -4.6 mmol/L (-2.0-3.0); ABG HCO3 20.6 mmol/L (21.0-28.0); ABG OXYGEN SATURATION 84.7 % (95.0-99.0); ABG PCO2 38 mmHg (35-48)
[2017-04-12] MEDS: DOXYCYCLINE 100MG+NS 250ML 250 ML IV SCH ×2 (10:15→23:23)
[2017-04-12] MEDS ORDERED: CARV3.1262 PO (10:34)
[2017-04-12] MEDS ORDERED: SODIUM CHLORIDE 0.9% 1000ML 1,000 ML IV SCH (11:00)
[2017-04-12] MEDS: VANCOMYCIN 1GM+NS 250ML 250 ML IV SCH ×3 (11:40→23:22)
[2017-04-12] MEDS: PROPOFOL 1000 MG/100 ML 100 ML IV PRN ×6 (11:40→23:28)
[2017-04-12] MEDS: INSULIN HUMULIN R 100 UNIT/ML 3ML SQ SCH ×3 (11:45→23:38)
[2017-04-12] MEDS: FENTANYL 2500MCG+NS 250ML 250 ML IV PRN (16:22)
[2017-04-12] MEDS: LACTATED RINGERS 1000ML 1,000 ML IV SCH (16:25)
[2017-04-12] MEDS: IPRATROPIUM/ALBUTEROL SULFATE 3 ML SOLUTION IH SCH ×2 (18:26→23:22)
[2017-04-12 18:43] LABS: ABG BASE EXCESS -2.3 mmol/L (-2.0-3.0); ABG HCO3 21.6 mmol/L (21.0-28.0); ABG OXYGEN SATURATION 86.7 % (95.0-99.0); ABG PCO2 35 mmHg (35-48)
[2017-04-12] MEDS: CISATRACURIUM BESYLATE 200 MG in SODIUM CHLORIDE 0.9% 180 ML IV SCH (19:45)
[2017-04-12] MEDS: OSELTAMIVIR PHOSPHATE 75 MG CAP NG SCH (20:07)
[2017-04-12] MEDS ORDERED: HEPARIN SODIUM 5000UNIT/ML 1ML VIAL SQ SCH (21:00)
[2017-04-12] MEDS ORDERED: FAMOTIDINE 20MG TAB 20 MG TAB PO SCH (21:00)
[2017-04-13] VITALS (25 sets, daily range): BP systolic 109–147; BP diastolic 50–69
[2017-04-13] MEDS: LACTATED RINGERS 1000ML 1,000 ML IV SCH ×3 (00:45→20:11)
[2017-04-13] MEDS: MEROPENEM 1 GM VIAL IVP SCH ×3 (01:04→18:42)
[2017-04-13] MEDS: PROPOFOL 1000 MG/100 ML 100 ML IV PRN ×4 (04:48→18:42)
[2017-04-13 05:16] LABS: BASOPHILS % (AUTO) 0.2 % (0.0-5.0); EOSINOPHILS % (AUTO) 1.7 % (0.0-8.0); HEMATOCRIT 26.8 % (42-54); LYMPHOCYTES % (AUTO) 10.3 % (21.0-51.0); MEAN CORPUSCULAR HEMOGLOBIN 25.1 pg (27.0-33.0); MEAN CORPUSCULAR HGB CONC 31.8 g/dL (32.0-36.0); MEAN CORPUSCULAR VOLUME 78.9 fL (79-99); MONOCYTES % (AUTO) 6.9 % (3.0-13.0); NEUTROPHILS % (AUTO) 80.9 % (40.0-77.0); NUCLEATED RED BLOOD CELLS 0.1 % (0.0-0.19); PLATELET COUNT (AUTO) 232 K/uL (130-400); RED CELL DISTRIBUTION WIDTH 16.9 % (11.0-15.5); WHITE BLOOD COUNT (AUTO) 13.3 K/uL (4.8-10.8)
[2017-04-13] MEDS: INSULIN HUMULIN R 100 UNIT/ML 3ML SQ SCH ×4 (05:27→23:45)
[2017-04-13 05:34] LABS: INR 3.98 (0.85-1.15); PROTHROMBIN TIME 40.7 SEC (9.6-11.6)
[2017-04-13 05:38] LABS: B-TYPE NATRIURETIC PEPTIDE 152 pg/mL (0-100)
[2017-04-13 05:40] LABS: ALBUMIN 2.3 g/dL (3.5-5.0); BILIRUBIN,TOTAL 1.5 mg/dL (0.2-1.0); CREATININE 0.8 mg/dL (0.5-1.5); POTASSIUM 3.6 mmol/L (3.5-5.1)
[2017-04-13] MEDS: FENTANYL 2500MCG+NS 250ML 250 ML IV PRN ×2 (06:02→19:48)
[2017-04-13] MEDS: IPRATROPIUM/ALBUTEROL SULFATE 3 ML SOLUTION IH SCH ×3 (06:17→18:03)
[2017-04-13] MEDS: VANCOMYCIN 1GM+NS 250ML 250 ML IV SCH ×3 (06:33→18:42)
[2017-04-13] MEDS ORDERED: PHARMACY COMMUNICATION MISC SCH (07:30)
[2017-04-13] MEDS: CISATRACURIUM BESYLATE 200 MG in SODIUM CHLORIDE 0.9% 180 ML IV SCH ×2 (07:42→23:51)
[2017-04-13] MEDS ORDERED: NOREPINEPHRINE BITARTRATE 8 MG in DEXTROSE 5%-WATER 250 ML IV SCH (07:45)
[2017-04-13 07:55] LABS: ABG BASE EXCESS -3.3 mmol/L (-2.0-3.0); ABG HCO3 22.9 mmol/L (21.0-28.0); ABG OXYGEN SATURATION 96.5 % (95.0-99.0); ABG PCO2 45 mmHg (35-48)
[2017-04-13] MEDS: OSELTAMIVIR PHOSPHATE 75 MG CAP NG SCH ×2 (09:21→20:10)
[2017-04-13] MEDS ORDERED: FAMOTIDINE/PF 20 MG/2 ML VIAL IV ONE (09:27)
[2017-04-13] MEDS: FAMOTIDINE 20MG TAB 20 MG TAB PO SCH ×2 (09:30→20:10)
[2017-04-13] MEDS: DOXYCYCLINE 100MG+NS 250ML 250 ML IV SCH ×2 (11:30→22:42)
[2017-04-13] MEDS ORDERED: IOPAMIDOL-370 100 ML VIAL IV ONE (16:30)
[2017-04-13] MEDS: ATORVASTATIN CALCIUM 10 MG TABLET NG SCH (20:09)
[2017-04-14] VITALS (22 sets, daily range): BP systolic 101–149; BP diastolic 43–77
[2017-04-14] MEDS: IPRATROPIUM/ALBUTEROL SULFATE 3 ML SOLUTION IH SCH ×4 (00:12→18:03)
[2017-04-14] MEDS: VANCOMYCIN 1GM+NS 250ML 250 ML IV SCH ×5 (00:21→23:17)
[2017-04-14] MEDS: PROPOFOL 1000 MG/100 ML 100 ML IV PRN ×4 (00:30→20:09)
[2017-04-14] MEDS: MEROPENEM 1 GM VIAL IVP SCH ×3 (01:24→18:48)
[2017-04-14] MEDS: LACTATED RINGERS 1000ML 1,000 ML IV SCH ×3 (02:38→20:05)
[2017-04-14 03:45] LABS: HEMATOCRIT 27.8 % (42-54); MEAN CORPUSCULAR HEMOGLOBIN 26.1 pg (27.0-33.0); MEAN CORPUSCULAR HGB CONC 32.5 g/dL (32.0-36.0); MEAN CORPUSCULAR VOLUME 80.2 fL (79-99); NUCLEATED RED BLOOD CELLS 0.1 % (0.0-0.19); PLATELET COUNT (AUTO) 232 K/uL (130-400); RED BLOOD CELL COUNT(AUTO) 3.46 MIL/uL (4.50-6.20); RED CELL DISTRIBUTION WIDTH 16.6 % (11.0-15.5)
[2017-04-14 03:48] LABS: INR 2.85 (0.85-1.15); PROTHROMBIN TIME 29.3 SEC (9.6-11.6)
[2017-04-14 04:03] LABS: ALBUMIN 2.2 g/dL (3.5-5.0); CREATININE 0.7 mg/dL (0.5-1.5); POTASSIUM 3.5 mmol/L (3.5-5.1); TOTAL PROTEIN, SERUM 6.1 g/dL (6.0-8.3)
[2017-04-14] MEDS: INSULIN HUMULIN R 100 UNIT/ML 3ML SQ SCH ×4 (05:21→23:45)
[2017-04-14 07:38] LABS: ABG BASE EXCESS -0.9 mmol/L (-2.0-3.0); ABG HCO3 25.1 mmol/L (21.0-28.0); ABG OXYGEN SATURATION 96.8 % (95.0-99.0); ABG PCO2 47 mmHg (35-48)
[2017-04-14] MEDS: OSELTAMIVIR PHOSPHATE 75 MG CAP NG SCH ×2 (08:41→21:00)
[2017-04-14] MEDS: FAMOTIDINE 20MG TAB 20 MG TAB PO SCH ×2 (08:41→20:57)
[2017-04-14] MEDS: ASPIRIN 81MG TAB.CHEW NG SCH (08:41)
[2017-04-14] MEDS: FENTANYL 2500MCG+NS 250ML 250 ML IV PRN (08:42)
[2017-04-14] MEDS ORDERED: IOPAMIDOL-370 100 ML VIAL IV ONE (09:23)
[2017-04-14] MEDS ORDERED: POTASSIUM CHLORIDE 20 MEQ ERTAB PO PRN (13:15)
[2017-04-14] MEDS ORDERED: LIDOCAINE HCL-MPF 1% 2ML VIAL IVP PRN (13:15)
[2017-04-14] MEDS ORDERED: FUROSEMIDE 10 MG/ML 2ML VIAL IV SCH (14:00)
[2017-04-14] MEDS: DOXYCYCLINE 100MG+NS 250ML 250 ML IV SCH ×2 (14:09→22:11)
[2017-04-14] MEDS: CISATRACURIUM BESYLATE 200 MG in SODIUM CHLORIDE 0.9% 180 ML IV SCH (16:08)
[2017-04-14] MEDS: FUROSEMIDE 10 MG/ML 2ML VIAL IV SCH (18:49)
[2017-04-14] MEDS: ATORVASTATIN CALCIUM 10 MG TABLET NG SCH (21:00)
[2017-04-15] VITALS (24 sets, daily range): BP systolic 83–160; BP diastolic 45–91
[2017-04-15] MEDS: IPRATROPIUM/ALBUTEROL SULFATE 3 ML SOLUTION IH SCH ×4 (00:08→19:36)
[2017-04-15] MEDS: MEROPENEM 1 GM VIAL IVP SCH ×3 (02:44→17:52)
[2017-04-15] MEDS: FUROSEMIDE 10 MG/ML 2ML VIAL IV SCH ×3 (02:44→17:53)
[2017-04-15 04:47] LABS: INR 2.69 (0.85-1.15); PROTHROMBIN TIME 27.7 SEC (9.6-11.6)
[2017-04-15 04:53] LABS: ALANINE AMINOTRANSFERASE 19 U/L (12-78); ASPARTATE AMINOTRANSFERASE 17 U/L (10-37); BILIRUBIN,TOTAL 0.8 mg/dL (0.2-1.0); CARBON DIOXIDE 31 mmol/L (21-32); CHLORIDE 104 mmol/L (101-111); CREATININE 0.7 mg/dL (0.5-1.5); GLOMERULAR FILTR. RATE CALC 117 mL/min (>60); GLUCOSE,RANDOM 134 mg/dL (70-105); PHOSPHORUS 2.3 mg/dL (2.5-4.9); SODIUM SERUM 140 mmol/L (136-145); TOTAL PROTEIN, SERUM 5.8 g/dL (6.0-8.3); UREA NITROGEN, BLOOD 9 mg/dL (7-18)
[2017-04-15 04:54] LABS: BASOPHILS % (AUTO) 0.4 % (0.0-5.0); EOSINOPHILS % (AUTO) 3.8 % (0.0-8.0); LYMPHOCYTES % (AUTO) 10.2 % (21.0-51.0); MEAN CORPUSCULAR HEMOGLOBIN 25.9 pg (27.0-33.0); MEAN CORPUSCULAR HGB CONC 32.9 g/dL (32.0-36.0); MEAN CORPUSCULAR VOLUME 78.8 fL (79-99); MONOCYTES % (AUTO) 6.6 % (3.0-13.0); NUCLEATED RED BLOOD CELLS 0.1 % (0.0-0.19); PLATELET COUNT (AUTO) 251 K/uL (130-400); RED CELL DISTRIBUTION WIDTH 16.6 % (11.0-15.5); WHITE BLOOD COUNT (AUTO) 8.5 K/uL (4.8-10.8)
[2017-04-15 04:55] LABS: PHENYTOIN (DILANTIN) < 0.5 mcg/mL (10.0-20.0)
[2017-04-15] MEDS: VANCOMYCIN 1GM+NS 250ML 250 ML IV SCH (05:44)
[2017-04-15] MEDS: INSULIN HUMULIN R 100 UNIT/ML 3ML SQ SCH ×4 (05:45→23:45)
[2017-04-15] MEDS: PROPOFOL 1000 MG/100 ML 100 ML IV PRN ×3 (05:48→20:56)
[2017-04-15] MEDS: OSELTAMIVIR PHOSPHATE 75 MG CAP NG SCH ×2 (08:49→20:50)
[2017-04-15] MEDS: ASPIRIN 81MG TAB.CHEW NG SCH (08:49)
[2017-04-15] MEDS: FAMOTIDINE 20MG TAB 20 MG TAB PO SCH ×2 (08:49→20:50)
[2017-04-15] MEDS: POTASSIUM CHLORIDE 20MEQ/100ML 100 ML IV PRN ×3 (08:50→21:01)
[2017-04-15] MEDS: CISATRACURIUM BESYLATE 200 MG in SODIUM CHLORIDE 0.9% 180 ML IV SCH (08:52)
[2017-04-15] MEDS: MAGNESIUM 2GM PREMIX 50ML 50 ML IV PRN ×2 (08:53→13:37)
[2017-04-15 09:17] LABS: ABG BASE EXCESS 1.9 mmol/L (-2.0-3.0); ABG HCO3 27.7 mmol/L (21.0-28.0); ABG OXYGEN SATURATION 96.5 % (95.0-99.0); ABG PCO2 49 mmHg (35-48)
[2017-04-15] MEDS: DOXYCYCLINE 100MG+NS 250ML 250 ML IV SCH ×2 (12:18→23:02)
[2017-04-15] MEDS ORDERED: COMPOUND PO MISCELLANEOUS 1 EACH MISC MISC PRN (15:00)
[2017-04-15] MEDS: CHLORHEXIDINE GLUCONATE 473 ML MOUTHWASH MM SCH ×2 (17:17→20:54)
[2017-04-15 18:16] LABS: POTASSIUM 3.3 mmol/L (3.5-5.1)
[2017-04-15] MEDS: ATORVASTATIN CALCIUM 10 MG TABLET NG SCH (20:49)
[2017-04-15] MEDS: FENTANYL 2500MCG+NS 250ML 250 ML IV PRN (20:56)
[2017-04-15] MEDS ORDERED: SODIUM CHLORIDE 0.9% 500ML 500 ML IV ONE (21:00)
[2017-04-15] MEDS ORDERED: CHLORHEXIDINE GLUCONATE 473 ML MOUTHWASH MM SCH (21:00)
[2017-04-16] VITALS (24 sets, daily range): BP systolic 88–146; BP diastolic 48–100
[2017-04-16] MEDS: POTASSIUM CHLORIDE 20MEQ/100ML 100 ML IV PRN ×4 (00:12→16:10)
[2017-04-16] MEDS: CISATRACURIUM BESYLATE 200 MG in SODIUM CHLORIDE 0.9% 180 ML IV SCH (00:12)
[2017-04-16] MEDS: IPRATROPIUM/ALBUTEROL SULFATE 3 ML SOLUTION IH SCH ×4 (00:45→17:00)
[2017-04-16] MEDS: FUROSEMIDE 10 MG/ML 2ML VIAL IV SCH ×2 (02:02→08:14)
[2017-04-16] MEDS: MEROPENEM 1 GM VIAL IVP SCH ×3 (02:03→18:28)
[2017-04-16] MEDS: PROPOFOL 1000 MG/100 ML 100 ML IV PRN ×4 (03:58→23:59)
[2017-04-16] MEDS: INSULIN HUMULIN R 100 UNIT/ML 3ML SQ SCH ×3 (06:28→17:40)
[2017-04-16] MEDS: CHLORHEXIDINE GLUCONATE 473 ML MOUTHWASH MM SCH ×3 (06:29→21:05)
[2017-04-16 06:42] LABS: BASOPHILS % (AUTO) 0.3 % (0.0-5.0); HEMATOCRIT 28.9 % (42-54); LYMPHOCYTES % (AUTO) 9.3 % (21.0-51.0); MEAN CORPUSCULAR HEMOGLOBIN 25.3 pg (27.0-33.0); MEAN CORPUSCULAR HGB CONC 32.3 g/dL (32.0-36.0); MEAN CORPUSCULAR VOLUME 78.4 fL (79-99); NEUTROPHILS % (AUTO) 82.4 % (40.0-77.0); NUCLEATED RED BLOOD CELLS 0.1 % (0.0-0.19); PLATELET COUNT (AUTO) 302 K/uL (130-400); RED BLOOD CELL COUNT(AUTO) 3.68 MIL/uL (4.50-6.20); RED CELL DISTRIBUTION WIDTH 16.2 % (11.0-15.5)
[2017-04-16 06:57] LABS: CREATININE 0.7 mg/dL (0.5-1.5); MAGNESIUM 1.8 mg/dL (1.80-2.40); POTASSIUM 3.4 mmol/L (3.5-5.1)
[2017-04-16] MEDS: OSELTAMIVIR PHOSPHATE 75 MG CAP NG SCH ×2 (08:14→20:28)
[2017-04-16] MEDS: FAMOTIDINE 20MG TAB 20 MG TAB PO SCH ×2 (08:14→20:29)
[2017-04-16] MEDS: ASPIRIN 81MG TAB.CHEW NG SCH (08:14)
[2017-04-16 08:32] LABS: ABG BASE EXCESS 7.6 mmol/L (-2.0-3.0); ABG HCO3 34.3 mmol/L (21.0-28.0); ABG OXYGEN SATURATION 97.8 % (95.0-99.0); ABG PCO2 56 mmHg (35-48)
[2017-04-16] MEDS ORDERED: VANCOMYCIN 1.25 GM in SODIUM CHLORIDE 0.9% 250 ML IV SCH (10:17)
[2017-04-16] MEDS: MAGNESIUM 2GM PREMIX 50ML 50 ML IV PRN (11:25)
[2017-04-16] MEDS: DOXYCYCLINE 100MG+NS 250ML 250 ML IV SCH ×2 (11:36→22:05)
[2017-04-16] MEDS ORDERED: COMPOUND IV REFRIGERATED 1 EACH IVSOLN MISC PRN (11:45)
[2017-04-16] MEDS ORDERED: FUROSEMIDE 10 MG/ML 4ML VIAL IV SCH (12:30)
[2017-04-16] MEDS: FUROSEMIDE 10 MG/ML 4ML VIAL IV SCH (18:28)
[2017-04-16 19:30] LABS: MAGNESIUM 2.1 mg/dL (1.80-2.40); POTASSIUM 3.7 mmol/L (3.5-5.1)
[2017-04-16] MEDS: ATORVASTATIN CALCIUM 10 MG TABLET NG SCH (20:29)
[2017-04-16] MEDS: FENTANYL 2500MCG+NS 250ML 250 ML IV PRN (20:38)
[2017-04-16] MEDS: VANCOMYCIN 1.25 GM in SODIUM CHLORIDE 0.9% 250 ML IV SCH (21:05)
[2017-04-17] VITALS (31 sets, daily range): BP systolic 86–174; BP diastolic 44–91
[2017-04-17] MEDS: IPRATROPIUM/ALBUTEROL SULFATE 3 ML SOLUTION IH SCH ×4 (00:02→19:03)
[2017-04-17] MEDS: MEROPENEM 1 GM VIAL IVP SCH ×3 (02:12→18:12)
[2017-04-17] MEDS: FUROSEMIDE 10 MG/ML 4ML VIAL IV SCH ×3 (02:16→18:12)
[2017-04-17 03:52] LABS: MEAN CORPUSCULAR HEMOGLOBIN 25.5 pg (27.0-33.0); MEAN CORPUSCULAR HGB CONC 32.7 g/dL (32.0-36.0); MEAN CORPUSCULAR VOLUME 77.9 fL (79-99); NUCLEATED RED BLOOD CELLS 0.1 % (0.0-0.19); PLATELET COUNT (AUTO) 317 K/uL (130-400); RED BLOOD CELL COUNT(AUTO) 3.59 MIL/uL (4.50-6.20); RED CELL DISTRIBUTION WIDTH 16.4 % (11.0-15.5); WHITE BLOOD COUNT (AUTO) 9.3 K/uL (4.8-10.8)
[2017-04-17 04:04] LABS: INR 1.56 (0.85-1.15); PROTHROMBIN TIME 16.2 SEC (9.6-11.6)
[2017-04-17] MEDS: PROPOFOL 1000 MG/100 ML 100 ML IV PRN ×5 (04:04→20:47)
[2017-04-17 04:09] LABS: CREATININE 0.9 mg/dL (0.5-1.5); POTASSIUM 3.5 mmol/L (3.5-5.1)
[2017-04-17] MEDS: POTASSIUM CHLORIDE 20MEQ/100ML 100 ML IV PRN ×3 (04:15→23:44)
[2017-04-17] MEDS: CHLORHEXIDINE GLUCONATE 473 ML MOUTHWASH MM SCH ×3 (05:16→22:25)
[2017-04-17] MEDS: INSULIN HUMULIN R 100 UNIT/ML 3ML SQ SCH ×5 (05:45→23:39)
[2017-04-17] MEDS: VANCOMYCIN 1.25 GM in SODIUM CHLORIDE 0.9% 250 ML IV SCH ×2 (05:48→18:12)
[2017-04-17] MEDS: ASPIRIN 81MG TAB.CHEW NG SCH (10:27)
[2017-04-17] MEDS: FAMOTIDINE 20MG TAB 20 MG TAB PO SCH ×2 (10:27→20:46)
[2017-04-17] MEDS: FENTANYL 2500MCG+NS 250ML 250 ML IV PRN (10:28)
[2017-04-17] MEDS: DOXYCYCLINE 100MG+NS 250ML 250 ML IV SCH ×2 (13:08→22:26)
[2017-04-17] MEDS: HEPARIN 25000 UNITS/250 ML D5W 250 ML IV SCH (13:22)
[2017-04-17 15:36] LABS: ABG BASE EXCESS 6.3 mmol/L (-2.0-3.0); ABG HCO3 31.7 mmol/L (21.0-28.0); ABG PCO2 48 mmHg (35-48)
[2017-04-17] MEDS: ATORVASTATIN CALCIUM 10 MG TABLET NG SCH (20:46)
[2017-04-18] VITALS (25 sets, daily range): BP systolic 94–142; BP diastolic 47–64
[2017-04-18] MEDS: IPRATROPIUM/ALBUTEROL SULFATE 3 ML SOLUTION IH SCH ×4 (00:06→18:31)
[2017-04-18] MEDS ORDERED: SODIUM CHLORIDE 0.9% 250 ML IV ONE (01:17)
[2017-04-18] MEDS: MEROPENEM 1 GM VIAL IVP SCH ×3 (01:28→18:27)
[2017-04-18] MEDS: FUROSEMIDE 10 MG/ML 4ML VIAL IV SCH ×3 (01:29→18:27)
[2017-04-18] MEDS: VANCOMYCIN 1.25 GM in SODIUM CHLORIDE 0.9% 250 ML IV SCH ×3 (01:32→18:27)
[2017-04-18 04:35] LABS: ALBUMIN 1.9 g/dL (3.5-5.0); BILIRUBIN,TOTAL 0.6 mg/dL (0.2-1.0); CREATININE 0.8 mg/dL (0.5-1.5); MAGNESIUM 1.8 mg/dL (1.80-2.40); PHOSPHORUS 2.8 mg/dL (2.5-4.9); POTASSIUM 3.4 mmol/L (3.5-5.1); TOTAL PROTEIN, SERUM 5.6 g/dL (6.0-8.3)
[2017-04-18] MEDS: POTASSIUM CHLORIDE 20MEQ/100ML 100 ML IV PRN ×2 (05:15→20:56)
[2017-04-18] MEDS: PROPOFOL 1000 MG/100 ML 100 ML IV PRN ×5 (05:15→23:05)
[2017-04-18] MEDS: MAGNESIUM 2GM PREMIX 50ML 50 ML IV PRN (05:16)
[2017-04-18 05:37] LABS: HEMATOCRIT 24.1 % (42-54); MEAN CORPUSCULAR HGB CONC 33.8 g/dL (32.0-36.0); MEAN CORPUSCULAR VOLUME 77.1 fL (79-99); NUCLEATED RED BLOOD CELLS 0.1 % (0.0-0.19); PLATELET COUNT (AUTO) 262 K/uL (130-400); RED BLOOD CELL COUNT(AUTO) 3.12 MIL/uL (4.50-6.20); RED CELL DISTRIBUTION WIDTH 16.5 % (11.0-15.5); WHITE BLOOD COUNT (AUTO) 8.3 K/uL (4.8-10.8)
[2017-04-18] MEDS: INSULIN HUMULIN R 100 UNIT/ML 3ML SQ SCH ×5 (05:45→23:45)
[2017-04-18] MEDS: CHLORHEXIDINE GLUCONATE 473 ML MOUTHWASH MM SCH ×3 (06:05→21:00)
[2017-04-18] MEDS: HEPARIN 25000 UNITS/250 ML D5W 250 ML IV SCH ×2 (06:23→21:09)
[2017-04-18 07:39] LABS: ABG BASE EXCESS 8.6 mmol/L (-2.0-3.0); ABG HCO3 32.1 mmol/L (21.0-28.0); ABG OXYGEN SATURATION 98.3 % (95.0-99.0); ABG PCO2 40 mmHg (35-48)
[2017-04-18] MEDS: FAMOTIDINE 20MG TAB 20 MG TAB PO SCH ×2 (09:18→20:49)
[2017-04-18] MEDS: ASPIRIN 81MG TAB.CHEW NG SCH (09:18)
[2017-04-18] MEDS: DOXYCYCLINE 100MG+NS 250ML 250 ML IV SCH ×3 (11:57→22:37)
[2017-04-18] MEDS: FENTANYL 2500MCG+NS 250ML 250 ML IV PRN (11:58)
[2017-04-18] MEDS: POLYETHYLENE GLYCOL 3350 17 GM POWD.PACK PO SCH (13:20)
[2017-04-18] MEDS: SODIUM CHLORIDE 0.9% 250 ML IV SCH (13:21)
[2017-04-18] MEDS ORDERED: LACTULOSE 20 GM/30 ML UDCUP PO PRN (14:15)
[2017-04-18] MEDS: ATORVASTATIN CALCIUM 10 MG TABLET NG SCH (20:48)
[2017-04-19] VITALS (24 sets, daily range): BP systolic 98–141; BP diastolic 43–78
[2017-04-19] MEDS: IPRATROPIUM/ALBUTEROL SULFATE 3 ML SOLUTION IH SCH ×5 (00:48→23:55)
[2017-04-19] MEDS: FUROSEMIDE 10 MG/ML 4ML VIAL IV SCH ×3 (01:50→17:51)
[2017-04-19] MEDS: MEROPENEM 1 GM VIAL IVP SCH ×3 (01:50→17:51)
[2017-04-19] MEDS: VANCOMYCIN 1.25 GM in SODIUM CHLORIDE 0.9% 250 ML IV SCH ×2 (02:00→02:02)
[2017-04-19 03:17] LABS: CREATININE 0.8 mg/dL (0.5-1.5); POTASSIUM 3.5 mmol/L (3.5-5.1); THYROID STIMULATING HORMONE 8.7 uIU/mL (0.36-3.74)
[2017-04-19] MEDS: PROPOFOL 1000 MG/100 ML 100 ML IV PRN ×6 (03:37→22:51)
[2017-04-19] MEDS: POTASSIUM CHLORIDE 20MEQ/100ML 100 ML IV PRN ×2 (04:25→09:57)
[2017-04-19] MEDS: INSULIN HUMULIN R 100 UNIT/ML 3ML SQ SCH ×3 (05:45→17:57)
[2017-04-19] MEDS: CHLORHEXIDINE GLUCONATE 473 ML MOUTHWASH MM SCH ×3 (06:47→22:08)
[2017-04-19] MEDS ORDERED: COMPOUND IV REFRIGERATED 1 EACH IVSOLN MISC PRN (09:00)
[2017-04-19] MEDS: VANCOMYCIN 1.5 GM in SODIUM CHLORIDE 0.9% 250 ML IV SCH ×2 (09:00→21:41)
[2017-04-19] MEDS: FAMOTIDINE 20MG TAB 20 MG TAB PO SCH ×2 (09:56→20:25)
[2017-04-19] MEDS: ASPIRIN 81MG TAB.CHEW NG SCH (09:56)
[2017-04-19] MEDS: POLYETHYLENE GLYCOL 3350 17 GM POWD.PACK PO SCH (09:56)
[2017-04-19] MEDS: FENTANYL 2500MCG+NS 250ML 250 ML IV PRN (11:05)
[2017-04-19] MEDS: DOXYCYCLINE 100MG+NS 250ML 250 ML IV SCH ×2 (11:57→22:47)
[2017-04-19] MEDS: SODIUM CHLORIDE 0.9% 250 ML IV SCH (11:58)
[2017-04-19] MEDS: ACETAMINOPHEN ELIXIR 650 MG/20.3 ML UDCUP PEG PRN (12:08)
[2017-04-19] MEDS: HEPARIN 25000 UNITS/250 ML D5W 250 ML IV SCH (13:11)
[2017-04-19] MEDS: ATORVASTATIN CALCIUM 10 MG TABLET NG SCH (20:25)
[2017-04-20] VITALS (24 sets, daily range): BP systolic 101–151; BP diastolic 48–83
[2017-04-20] MEDS: INSULIN HUMULIN R 100 UNIT/ML 3ML SQ SCH ×4 (00:24→18:03)
[2017-04-20] MEDS: MEROPENEM 1 GM VIAL IVP SCH ×3 (02:00→18:02)
[2017-04-20] MEDS: FUROSEMIDE 10 MG/ML 4ML VIAL IV SCH ×3 (02:00→18:02)
[2017-04-20 04:07] LABS: ABG BASE EXCESS 10.8 mmol/L (-2.0-3.0); ABG HCO3 36.5 mmol/L (21.0-28.0); ABG OXYGEN SATURATION 93.2 % (95.0-99.0); ABG PCO2 52 mmHg (35-48)
[2017-04-20 04:24] LABS: HEMATOCRIT 23.3 % (42-54); MEAN CORPUSCULAR HEMOGLOBIN 26.4 pg (27.0-33.0); MEAN CORPUSCULAR HGB CONC 34.3 g/dL (32.0-36.0); MEAN CORPUSCULAR VOLUME 76.8 fL (79-99); PLATELET COUNT (AUTO) 312 K/uL (130-400); RED BLOOD CELL COUNT(AUTO) 3.04 MIL/uL (4.50-6.20); RED CELL DISTRIBUTION WIDTH 16.7 % (11.0-15.5); WHITE BLOOD COUNT (AUTO) 8.5 K/uL (4.8-10.8)
[2017-04-20 04:34] LABS: BAND NEUTROPHILS % (MANUAL) 5 % (0-2); LYMPHOCYTES % (MANUAL) 15 % (22-44); MAN.DIFF COMMENT-IMPRESSION MANUAL DIFFERENTIAL; MONOCYTES % (MANUAL) 13 % (2-9); PLATELET MORPHOLOGY COMMENT ADEQUATE; SEGMENTED NEUTROPHILS % 67 % (40-70)
[2017-04-20 04:35] LABS: CREATININE 0.8 mg/dL (0.5-1.5); POTASSIUM 3.2 mmol/L (3.5-5.1)
[2017-04-20] MEDS: CHLORHEXIDINE GLUCONATE 473 ML MOUTHWASH MM SCH ×3 (06:20→21:42)
[2017-04-20] MEDS: POTASSIUM CHLORIDE 10% ELIXIR 20 MEQ/15 ML UDCUP PO PRN ×3 (06:24→15:11)
[2017-04-20] MEDS: IPRATROPIUM/ALBUTEROL SULFATE 3 ML SOLUTION IH SCH ×4 (06:24→23:55)
[2017-04-20] MEDS: PROPOFOL 1000 MG/100 ML 100 ML IV PRN ×2 (07:09→18:12)
[2017-04-20] MEDS: POLYETHYLENE GLYCOL 3350 17 GM POWD.PACK PO SCH (09:00)
[2017-04-20] MEDS: ASPIRIN 81MG TAB.CHEW NG SCH (09:14)
[2017-04-20] MEDS: FAMOTIDINE 20MG TAB 20 MG TAB PO SCH ×2 (09:14→21:41)
[2017-04-20] MEDS: VANCOMYCIN 1.5 GM in SODIUM CHLORIDE 0.9% 250 ML IV SCH ×2 (09:15→21:41)
[2017-04-20 10:34] LABS: ABG BASE EXCESS 10.3 mmol/L (-2.0-3.0); ABG HCO3 35.2 mmol/L (21.0-28.0); ABG OXYGEN SATURATION 95.4 % (95.0-99.0); ABG PCO2 47 mmHg (35-48)
[2017-04-20] MEDS: DOXYCYCLINE 100MG+NS 250ML 250 ML IV SCH ×2 (13:01→23:14)
[2017-04-20] MEDS: SODIUM CHLORIDE 0.9% 250 ML IV SCH (13:01)
[2017-04-20 14:47] LABS: ABG BASE EXCESS 7.3 mmol/L (-2.0-3.0); ABG HCO3 30.4 mmol/L (21.0-28.0); ABG OXYGEN SATURATION 90.9 % (95.0-99.0); ABG PCO2 38 mmHg (35-48)
[2017-04-20] MEDS: M.V.I. IV [ADULT] 10 ML, FOLIC ACID 1 MG, THIAMINE HCL 100 MG in SODIUM CHLORIDE 0.9% 1... IV SCH (15:09)
[2017-04-20] MEDS: FENTANYL 2500MCG+NS 250ML 250 ML IV PRN (20:35)
[2017-04-20] MEDS: HEPARIN 25000 UNITS/250 ML D5W 250 ML IV SCH (20:37)
[2017-04-20] MEDS: ATORVASTATIN CALCIUM 10 MG TABLET NG SCH (21:41)
[2017-04-21] VITALS (23 sets, daily range): BP systolic 118–170; BP diastolic 56–91
[2017-04-21] MEDS: PROPOFOL 1000 MG/100 ML 100 ML IV PRN ×5 (00:35→20:15)
[2017-04-21] MEDS: INSULIN HUMULIN R 100 UNIT/ML 3ML SQ SCH ×5 (00:37→23:45)
[2017-04-21] MEDS: ACETAMINOPHEN ELIXIR 650 MG/20.3 ML UDCUP PEG PRN (00:38)
[2017-04-21] MEDS: FUROSEMIDE 10 MG/ML 4ML VIAL IV SCH ×3 (02:27→17:12)
[2017-04-21] MEDS: MEROPENEM 1 GM VIAL IVP SCH ×3 (02:31→17:12)
[2017-04-21 03:34] LABS: ABG BASE EXCESS 8.1 mmol/L (-2.0-3.0); ABG HCO3 30.3 mmol/L (21.0-28.0); ABG PCO2 34 mmHg (35-48)
[2017-04-21 04:15] LABS: MEAN CORPUSCULAR HEMOGLOBIN 24.8 pg (27.0-33.0); MEAN CORPUSCULAR HGB CONC 32.5 g/dL (32.0-36.0); MEAN CORPUSCULAR VOLUME 76.5 fL (79-99); PLATELET COUNT (AUTO) 352 K/uL (130-400); RED BLOOD CELL COUNT(AUTO) 3.54 MIL/uL (4.50-6.20); RED CELL DISTRIBUTION WIDTH 16.9 % (11.0-15.5); WHITE BLOOD COUNT (AUTO) 8.9 K/uL (4.8-10.8)
[2017-04-21 04:31] LABS: POTASSIUM 2.9 mmol/L (3.5-5.1)
[2017-04-21] MEDS: POTASSIUM CHLORIDE 20MEQ/100ML 100 ML IV PRN ×3 (04:32→14:36)
[2017-04-21 05:14] LABS: BAND NEUTROPHILS % (MANUAL) 2 % (0-2); BASOPHILS % (MANUAL) 1 % (0-2); EOSINOPHILS % (MANUAL) 1 % (1-6); LYMPHOCYTES % (MANUAL) 15 % (22-44); MONOCYTES % (MANUAL) 5 % (2-9); REACTIVE LYMPHOCYTES 5 % (0-0); SEGMENTED NEUTROPHILS % 71 % (40-70)
[2017-04-21 05:15] LABS: MAN.DIFF COMMENT-IMPRESSION MANUAL DIFFERENTIAL
[2017-04-21] MEDS: CHLORHEXIDINE GLUCONATE 473 ML MOUTHWASH MM SCH ×3 (06:27→21:08)
[2017-04-21] MEDS: IPRATROPIUM/ALBUTEROL SULFATE 3 ML SOLUTION IH SCH ×4 (07:12→23:47)
[2017-04-21] MEDS: M.V.I. IV [ADULT] 10 ML, FOLIC ACID 1 MG, THIAMINE HCL 100 MG in SODIUM CHLORIDE 0.9% 1... IV SCH (09:00)
[2017-04-21] MEDS: POLYETHYLENE GLYCOL 3350 17 GM POWD.PACK PO SCH (09:21)
[2017-04-21] MEDS: FAMOTIDINE 20MG TAB 20 MG TAB PO SCH ×2 (09:21→20:15)
[2017-04-21] MEDS: ASPIRIN 81MG TAB.CHEW NG SCH (09:21)
[2017-04-21] MEDS: DOXYCYCLINE 100MG+NS 250ML 250 ML IV SCH ×2 (09:59→22:40)
[2017-04-21] MEDS: VANCOMYCIN 1.5 GM in SODIUM CHLORIDE 0.9% 250 ML IV SCH ×2 (09:59→20:37)
[2017-04-21] MEDS: SODIUM CHLORIDE 0.9% 250 ML IV SCH (12:30)
[2017-04-21] MEDS: HEPARIN 25000 UNITS/250 ML D5W 250 ML IV SCH (14:42)
[2017-04-21] MEDS: ATORVASTATIN CALCIUM 10 MG TABLET NG SCH (20:15)
[2017-04-21] MEDS: FENTANYL 2500MCG+NS 250ML 250 ML IV PRN (20:16)
[2017-04-22] VITALS (17 sets, daily range): BP systolic 118–182; BP diastolic 60–95
[2017-04-22] MEDS: FUROSEMIDE 10 MG/ML 4ML VIAL IV SCH ×2 (01:08→09:12)
[2017-04-22] MEDS: MEROPENEM 1 GM VIAL IVP SCH ×2 (01:08→09:12)
[2017-04-22 04:08] LABS: HEMATOCRIT 28.3 % (42-54); MEAN CORPUSCULAR HEMOGLOBIN 25.2 pg (27.0-33.0); MEAN CORPUSCULAR HGB CONC 33.2 g/dL (32.0-36.0); MEAN CORPUSCULAR VOLUME 75.9 fL (79-99); PLATELET COUNT (AUTO) 385 K/uL (130-400); RED BLOOD CELL COUNT(AUTO) 3.73 MIL/uL (4.50-6.20); RED CELL DISTRIBUTION WIDTH 16.7 % (11.0-15.5)
[2017-04-22 04:32] LABS: CREATININE 0.8 mg/dL (0.5-1.5); POTASSIUM 3.2 mmol/L (3.5-5.1)
[2017-04-22] MEDS: PROPOFOL 1000 MG/100 ML 100 ML IV PRN ×2 (04:34→09:04)
[2017-04-22] MEDS: CHLORHEXIDINE GLUCONATE 473 ML MOUTHWASH MM SCH ×3 (05:32→21:11)
[2017-04-22] MEDS: HEPARIN 25000 UNITS/250 ML D5W 250 ML IV SCH (05:42)
[2017-04-22] MEDS: INSULIN HUMULIN R 100 UNIT/ML 3ML SQ SCH ×4 (05:43→23:45)
[2017-04-22] MEDS: IPRATROPIUM/ALBUTEROL SULFATE 3 ML SOLUTION IH SCH ×2 (05:45→11:38)
[2017-04-22] MEDS: POTASSIUM CHLORIDE 20MEQ/100ML 100 ML IV PRN ×2 (05:51→09:04)
[2017-04-22] MEDS: POLYETHYLENE GLYCOL 3350 17 GM POWD.PACK PO SCH (09:05)
[2017-04-22] MEDS: FAMOTIDINE 20MG TAB 20 MG TAB PO SCH (09:05)
[2017-04-22] MEDS: ASPIRIN 81MG TAB.CHEW NG SCH (09:05)
[2017-04-22] MEDS: DOXYCYCLINE 100MG+NS 250ML 250 ML IV SCH (09:12)
[2017-04-22] MEDS: SODIUM CHLORIDE 0.9% 250 ML IV SCH (12:30)
[2017-04-22] MEDS: VANCOMYCIN 1.5 GM in SODIUM CHLORIDE 0.9% 250 ML IV SCH (13:21)
[2017-04-22] MEDS ORDERED: LORAZEPAM 2 MG/ML 1 ML VIAL IVP PRN (18:30)
[2017-04-23] VITALS: BP 118/62
[2017-04-23] MEDS: PROPOFOL 1000 MG/100 ML 100 ML IV PRN ×4 (01:08→21:15)
[2017-04-23 04:00] VITALS: BP 130/61
[2017-04-23] MEDS: CHLORHEXIDINE GLUCONATE 473 ML MOUTHWASH MM SCH ×3 (05:35→21:15)
[2017-04-23] MEDS: INSULIN HUMULIN R 100 UNIT/ML 3ML SQ SCH (05:37)
[2017-04-23 07:00] VITALS: BP 159/79
[2017-04-23 11:00] VITALS: BP 165/71
[2017-04-23 16:09] VITALS: BP 132/95
[2017-04-23 19:52] VITALS: BP 120/66
[2017-04-24] VITALS: BP 131/69
[2017-04-24] MEDS: PROPOFOL 1000 MG/100 ML 100 ML IV PRN ×3 (00:38→06:58)
[2017-04-24 04:00] VITALS: BP 140/69
[2017-04-24] MEDS: CHLORHEXIDINE GLUCONATE 473 ML MOUTHWASH MM SCH ×2 (06:13→13:18)
[2017-04-24] MEDS ORDERED: MORPHINE SULFATE 2 MG/ML 1ML SYG IVP PRN (07:45)
[2017-04-24] MEDS ORDERED: LORAZEPAM 2 MG/ML 1 ML VIAL IVP PRN (07:45)
[2017-04-24 08:00] VITALS: BP 114/59
[2017-04-24 16:00] VITALS: BP 141/74
[2017-04-24] MEDS: MORPHINE SULFATE 4 MG/1ML SYG IVP PRN ×2 (16:51→22:31)
[2017-04-24 19:26] VITALS: BP 153/77
[2017-04-24 23:25] VITALS: BP 147/73
[2017-04-25 03:42] VITALS: BP 143/73
[2017-04-25 08:00] VITALS: BP 150/74
[2017-04-25] MEDS ORDERED: MEROPENEM 1 GM VIAL IVP SCH (08:30)
[2017-04-25] MEDS ORDERED: MEROPENEM 1GM IVPB PREMIXED 1 GM IV SCH (08:30)
[2017-04-25] MEDS: MORPHINE SULFATE 4 MG/1ML SYG IVP PRN (10:44)
== END 2017-04-25 13:24 | disposition hospice, inpatient (51) | DRG 870 ==
LOC: EDH 18:39 → EDHIP 20:50 → 2CH 04-12 10:14 → 2BH 04-13 03:17
PROVIDERS: ADMIT Family Medicine; ATTEND Family Medicine
PROC: 5A1955Z Respiratory Ventilation, Greater than 96 Consecutive Hours (ICD-10-PCS; principal; 2017-04-12)
PROC: 0BH17EZ Insertion of Endotracheal Airway into Trachea, Via Natural or Artificial Opening (ICD-10-PCS; 2017-04-12)
PROC: 02HV33Z Insertion of Infusion Device into Superior Vena Cava, Percutaneous Approach (ICD-10-PCS; 2017-04-12)
PROC: 02HV33Z Insertion of Infusion Device into Superior Vena Cava, Percutaneous Approach (ICD-10-PCS; 2017-04-17)
DX: A41.9 Sepsis, unspecified organism (principal); D65 Disseminated intravascular coagulation [defibrination syndrome]; J96.21 Acute and chronic respiratory failure with hypoxia; R65.21 Severe sepsis with septic shock; J18.9 Pneumonia, unspecified organism; I50.23 Acute on chronic systolic (congestive) heart failure; G93.40 Encephalopathy, unspecified; J44.0 Chronic obstructive pulmonary disease with (acute) lower respiratory infection; I11.0 Hypertensive heart disease with heart failure; I69.354 Hemiplegia and hemiparesis following cerebral infarction affecting left non-dominant side; I42.9 Cardiomyopathy, unspecified; L03.116 Cellulitis of left lower limb; I82.502 Chronic embolism and thrombosis of unspecified deep veins of left lower extremity; D64.9 Anemia, unspecified; E11.9 Type 2 diabetes mellitus without complications; E66.9 Obesity, unspecified; E78.5 Hyperlipidemia, unspecified; F03.90 Unspecified dementia, unspecified severity, without behavioral disturbance, psychotic disturbance, mood disturbance, and anxiety; I25.10 Atherosclerotic heart disease of native coronary artery without angina pectoris; Y95 Nosocomial condition; Z66 Do not resuscitate; Z79.01 Long term (current) use of anticoagulants; Z79.82 Long term (current) use of aspirin; Z85.72 Personal history of non-Hodgkin lymphomas; Z86.711 Personal history of pulmonary embolism; Z87.01 Personal history of pneumonia (recurrent); Z87.891 Personal history of nicotine dependence; Z92.21 Personal history of antineoplastic chemotherapy; Z68.35 Body mass index [BMI] 35.0-35.9, adult
CPT/HCPCS: 31500; 36415; 36600; 70450; 71045; 71275; 80048; 80053; 80185; 80202; 81001; 82140; 82330; 82435; 82550; 82553; 82803; 82947; 82948; 83605; 83735; 83874; 83880; 84100; 84132; 84295; 84443; 84484; 85018; 85025; 85027; 85378; 85610; 85730; 87040; 87070; 87088; 87804; 93005; 93306; 93970; 94002; 94003; 94640; 94660; 94664; 94667; 94668; 99291; 99292; A4218; J1644; J1815; J1940; J1956; J2060; J2185; J2270; J2704; J3010; J3370; J3411; J3475; J3480; J3490; J7030; J7040; J7060; J7120; Q9967

== ENCOUNTER 2017-04-25 13:25 | Inpatient (IN) | payer OTHER ==
[~2017-04-25] VITALS: Ht 175 cm; Wt 68.0 kg
[~2017-04-25 13:25] MED LIST changes: +CARV3.1262 PO; -ETOMIDATE 2 MG/ML 10 ML VIAL IVP ONE
[2017-04-25] MEDS ORDERED: ONDANSETRON HCL 4 MG/2 ML VIAL IVP PRN (15:45)
[2017-04-25] MEDS ORDERED: ACETAMINOPHEN 650 MG SUPPOSITORY RC PRN (16:00)
[2017-04-25] MEDS ORDERED: ALBUTEROL SULFATE 0.083% 2.5 MG/3 ML INH IH PRN (16:00)
[2017-04-25] MEDS ORDERED: BISACODYL 10 MG SUPP.RECT RC PRN (16:00)
[2017-04-25] MEDS: MORPHINE SULFATE 4 MG/1ML SYG IVP PRN (17:53)
[2017-04-25] MEDS: LORAZEPAM 2 MG/ML 1 ML VIAL IVP PRN (18:43)
[2017-04-26] MEDS: LORAZEPAM 2 MG/ML 1 ML VIAL IVP PRN (02:31)
[2017-04-26] MEDS: MORPHINE SULFATE 4 MG/1ML SYG IVP PRN ×3 (02:52→16:59)
[2017-04-26] MEDS ORDERED: SCOPOLAMINE HYDROBROMIDE 1 EACH ADH..PATCH TD SCH ×2 (11:30→11:45)
[2017-04-26] MEDS: GLYCOPYRROLATE 1 MG/5 ML SYRINGE IV PRN ×2 (12:12→16:58)
[2017-04-27] MEDS: MORPHINE SULFATE 4 MG/1ML SYG IVP PRN (00:18)
[2017-04-27] MEDS: LORAZEPAM 2 MG/ML 1 ML VIAL IVP PRN ×3 (03:09→22:20)
[2017-04-27 08:00] VITALS: BP 144/87
[2017-04-27 11:29] VITALS: BP 154/78
[2017-04-27 16:00] VITALS: BP 140/84
[2017-04-27] MEDS: GLYCOPYRROLATE 1 MG/5 ML SYRINGE IV PRN (22:15)
== END 2017-04-28 18:00 | disposition expired | DRG 871 ==
LOC: 2BH 13:25 → 3DH 15:00
PROVIDERS: ADMIT Internal Medicine; ATTEND Internal Medicine
DX: A41.9 Sepsis, unspecified organism (principal); R65.21 Severe sepsis with septic shock; J96.01 Acute respiratory failure with hypoxia; J18.9 Pneumonia, unspecified organism; E11.9 Type 2 diabetes mellitus without complications; F03.90 Unspecified dementia, unspecified severity, without behavioral disturbance, psychotic disturbance, mood disturbance, and anxiety; J44.9 Chronic obstructive pulmonary disease, unspecified; I10 Essential (primary) hypertension; E78.5 Hyperlipidemia, unspecified; I25.10 Atherosclerotic heart disease of native coronary artery without angina pectoris; F17.200 Nicotine dependence, unspecified, uncomplicated; Z86.718 Personal history of other venous thrombosis and embolism; Z86.73 Personal history of transient ischemic attack (TIA), and cerebral infarction without residual deficits; Z85.72 Personal history of non-Hodgkin lymphomas
CPT/HCPCS: J2060; J2270; J3490